=== PATIENT | male | born 1985 | race Caucasian/White ===

== ENCOUNTER 2020-09-01 19:37 | Emergency (ER) | payer BC ==
[2020-09-01] MEDS ORDERED: Lidocaine 1% PF 5 ML VIAL ONE (19:59)
[2020-09-01] MEDS ORDERED: Amoxicillin/Potassium Clav 875 MG TAB ONE (20:21)
== END 2020-09-01 20:32 | disposition home or self-care (01) ==
LOC: BURERS 19:37
DX: S61.052A Open bite of left thumb without damage to nail, initial encounter (principal); W54.0XXA Bitten by dog, initial encounter
CPT/HCPCS: 12002